=== PATIENT | male | born 1965 | race Caucasian/White ===

== ENCOUNTER 2021-05-02 12:12 | Emergency (ER) | payer BC, MEDICAID, SELFPAY ==
[2021-05-02] VITALS (45 sets, daily range): BP systolic 127–177; BP diastolic 58–76; PULSE 66–101; RESP 11–22; TEMP 36.4–36.6; O2SAT 92–98
--- NOTE | 2021-05-02 12:00 | RT.EKG_ITS ---
APPROVED REPORT Exam: Resting ECG Reason for Exam: Chest pain Patient Location: E HR:94 bpm ECG Measurements Heart Rate 94 AXIS HI 225 P 74 QRSd 113 QRS 116 QT 367 T 68 QTc 460 Conclusion Sinus rhythm...normal P axis, V-rate 60- 99 Prolonged HI interval...HI >205, V-rate 91-120 Left posterior fascicular block...trm axis(110,210), init force sup Anterior infarct, old...Q >40mS, abnormal ST-T, V2-V5 no STEMI, non-diagnostic EKG I have reviewed and interpreted ECG and agree with software generated interpretation.
--- NOTE | 2021-05-02 12:15 | DI.RAD_ITS ---
Exam(s) XR CHEST 2V PA LATERAL EXAM: XR CHEST 2V PA LATERAL CLINICAL HISTORY: chest pain. TECHNIQUE: 2D digital imaging was performed. COMPARISON: No exams were available for comparison FINDINGS: Sternotomy wires and prosthetic aortic valve noted. Heart size upper normal. The mediastinum is not widened Lungs are clear. No infiltrates nor pleural effusions. No pulmonary edema. No pneumothorax. IMPRESSION: No acute pulmonary findings. Prosthetic aortic valve noted. DATA REPOSITORY: RADIATION DOSE DELIVERED:
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
[2021-05-02 12:41] LABS: Abs Immature Grans 0.04 10^3/uL (0.0-0.06); Absolute Basophil Count 0.03 10^3/uL (0.0-0.2); Absolute Eosinophil Count 0.54 10^3/uL (0.0-0.7); Absolute Lymphocyte Count 2.01 10^3/uL (1.2-3.4); Absolute Monocyte Count 0.59 10^3/uL (0.1-0.8); Absolute Neutrophil Count 5.82 10^3/uL (1.2-6.7); Basophils % 0.3; HGB 15.4 g/dL (13.5-17.5); Immature Grans % 0.4; Lymphocytes % 22.3; MCH 29.7 pg (27.0-33.0); MCHC 32.8 % (32.0-36.0); MCV 90.6 fL (80-95); MPV 9.8 fL (8.0-11.0); Monocytes % 6.5; Neutrophils % 64.5; Nucleated RBC 0 %; Platelet Count 244 10^3/uL (130-400); RBC 5.19 10^6/uL (4.36-5.78); RDW 13.6 % (11.8-14.1); RDW-SD 45.6 fL; WBC 9.03 10^3/uL (4.4-10.8)
[2021-05-02 13:00] LABS: ALT 24 U/L (16-63); AST 18 U/L (15-37); Albumin 3.4 g/dL (3.4-5.0); Alkaline Phosphatase 63 U/L (46-116); Anion Gap 8.9 mmol/L (3-11); BUN 17 mg/dL (7-18); Bilirubin, Total 0.5 mg/dL (0.2-1.0); CO2 26.1 mmol/L (21.0-32.0); CREATININE 1.2 mg/dL (0.70-1.30); Calcium 8.9 mg/dL (8.5-10.1); Chloride 106 mmol/L (98-107); Glucose 275 mg/dL (74-106); Magnesium 1.7 mg/dL (1.8-2.4); Potassium 3.7 mmol/L (3.5-5.1); Sodium 141 mmol/L (136-145)
[2021-05-02 13:02] LABS: Troponin I < 0.05 ng/mL (<0.06)
[2021-05-02 13:55] LABS: PTT Activated 41.6 sec (21.0-27.5)
[2021-05-02 14:03] LABS: Prothrombin Time 47.1 sec (9.3-11.0)
[2021-05-02 14:07] LABS: INR 4.9 (0.9-1.1)
[2021-05-02 14:58] LABS: Bilirubin Negative (Negative); Blood Negative (Negative); Clarity Clear (Clear); Glucose >=1000 mg/dL (Negative); Ketones Negative (Negative); Leukocyte Esterase Negative (Negative); Nitrite Negative (Negative); Urobilinogen 0.2 EU/dL (Up TO 0.2)
--- NOTE | 2021-05-02 15:00 | RT.EKG_ITS ---
APPROVED REPORT Exam: Resting ECG Reason for Exam: chest pain Patient Location: E HR:70 bpm ECG Measurements Heart Rate 70 AXIS ID 225 P 41 QRSd 112 QRS 110 QT 394 T 84 QTc 425 Conclusion Sinus rhythm...normal P axis, V-rate 60- 99 Prolonged ID interval...ID >210, V-rate 50- 90 Consider anterior infarct...Q >30mS in V2-V5
--- NOTE | 2021-05-02 15:30 | DI.CT_ITS ---
Exam(s) CT CHEST PE CTA EXAM: CT CHEST PE CTA CLINICAL HISTORY: SOB, Chest pain, R/O PE. TECHNIQUE: Imaging Protocol: Axial CT angiography was performed with multi-slice acquisition and mu lti-planar and/or 3D reconstructions. CONTRAST MATERIAL: Intravenous: Omnipaque 350 Contrast volume:100 mL COMPARISON: No exams were available for comparison FINDINGS: Tracheobronchial tree: Patent where visualized. Pulmonary parenchyma: No consolidation or dominant measurable mass. No architectural distortion. Ther e is a 4 mm pulmonary nodule in the right upper lobe. Pulmonary Arteries: No evidence of filling defect to suggest pulmonary emboli. Mediastinum and Georgina: No dominant adenopathy or fluid collection. Visualized thyroid gland: Unremarkable. Pleura: No effusion or pneumothorax. Heart: Mild cardiomegaly. Coronary artery calcifications. No pericardial effusion. There is an aor tic valve replacement. Aorta: Thoracic aorta non-dilated. No evidence of dissection. Atherosclerosis. Upper abdomen: Status post cholecystectomy. Soft tissues: Bilateral gynecomastia. Bones: Within normal limits for the patient's age.Sternotomy wires. IMPRESSION: 1. No evidence of pulmonary embolism, thoracic aortic dissection or aneurysm. 2. No acute pulmonary process. 3. 4 mm right upper lobe pulmonary nodule. In high risk patients (history of smoking or other increa sed risk factors), a repeat CT scan of the chest in 12 months is recommended. Incidental Findings RADIATION DOSE DELIVERED: 586.14mGy.cm Total DLP DATA REPOSITORY: All CT scans at this facility are submitted to the National Radiology Data Registry (NRDR) Dose Index Registry (DIR) with the [employer] ([employer]). RADIATION OPTIMIZATION: All CT scans at this facility use at least one of these dose optimization te chniques: automated exposure control; mA and/or kV adjustment per patient size (includes targeted exa ms where dose is matched to clinical indication); or iterative reconstruction.
[2021-05-02] MEDS: nitroGLYcerin 0.4 MG TAB SL (15:55)
[2021-05-02 15:58] LABS: Troponin I < 0.05 ng/mL (<0.06)
[2021-05-02] MEDS: Omnipaque 350 MG/ML 100 ML BTL IJ (16:56)
[2021-05-02] MEDS: Normal Saline - Diluent 50 ML VIAL IV (17:05)
--- NOTE | 2021-05-02 17:43 | DI.VRAD_ITS ---
PROCEDURE INFORMATION: Exam: CTA Chest With Contrast Exam date and time: 05/02/2021 3:37 PM Age: 56 years old Clinical indication: Shortness of breath; Prior surgery; Patient HX: SOB, chest pain; Additional info: R/O pe TECHNIQUE: Imaging protocol: Computed tomographic angiography of the chest with contrast. 3D rendering (Not supervised by radiologist): MIP and/or 3D reconstructed images were created by the technologist. COMPARISON: CR XR CHEST 2V PA LATERAL 05/02/2021 3:17 PM FINDINGS: Pulmonary arteries: Normal. No pulmonary emboli. Aorta: Unremarkable. No aortic aneurysm. No aortic dissection. Lungs: Unremarkable. No consolidation. No masses. Pleural spaces: Unremarkable. No pneumothorax. No pleural effusion. Heart: Coronary artery calcifications. Mild cardiomegaly Lymph nodes: Unremarkable. No enlarged lymph nodes. Gallbladder and bile ducts: Cholecystectomy. Bones/joints: Sternotomy. Degenerative arthritis in the spine. Old right rib fractures. Soft tissues: Unremarkable. Other findings: AVR. IMPRESSION: 1. No acute findings. No pulmonary embolism identified 2. Mild cardiomegaly Dictated and Authenticated by: Hannah Burleson MD. Ordering:SCOTT Castellano MD
[2021-05-02 19:23] LABS: D-Dimer 703 ng/mlFEU (<500)
== END 2021-05-02 18:54 | disposition home or self-care (01) ==
PROVIDERS: Nurse Practitioner Family; Emergency Provider Registered Nurse Emergency
DX: R07.89 Other chest pain (principal); R79.1 Abnormal coagulation profile; T45.515A Adverse effect of anticoagulants, initial encounter; R06.02 Shortness of breath; Z95.2 Presence of prosthetic heart valve; R79.0 Abnormal level of blood mineral
CPT/HCPCS: 36415; 71275; 80053; 93005; 99285; 71046; 81003; 83735; 84484; 85025; 85379; 85610; 85730; 93010; J3490